=== PATIENT | female | born 1935 | race Caucasian/White ===

== ENCOUNTER 2016-09-27 10:27 | Day surgery (SDC) | payer OTHER ==
[~2016-09-27] VITALS: Ht 161.9 cm; Wt 83.5 kg
[~2016-09-27 10:27] MED LIST: COLACE1 EAC1 PO; COUMADIN,JANTOVE5 MG PO; DIGITEK250 MC2 PO; EFFEXOR XR37.5 MG PO; ENABLEX15 MG PO; ERGOCALCIF50000 UNIT PO; LANOXIN,DIGI0.125 MG PO; LASIX20 MG PO; METOPROLOL SUC100 MG PO; OMEGA-31000 M1 PO; OMEPRAZOLE20 MG PO; OXAYDO5 MG PO; SYNTHROID125 MCG PO; SYNTHROID175 MCG PO; URECHOLINE25 MG PO; VESICARE5 MG PO; WARFARIN SODIUM5 MG PO; ZOCOR10 M1 PO
[2016-09-27] MEDS ORDERED: DIGOX125 MCG PO (10:58)
== END 2016-09-27 15:51 | disposition home or self-care (01) ==
LOC: CATH 10:27
PROC: 02HV33Z Insertion of Infusion Device into Superior Vena Cava, Percutaneous Approach (ICD-10-PCS; principal; 2016-09-27)
DX: C56.9 Malignant neoplasm of unspecified ovary (principal); I10 Essential (primary) hypertension; M19.90 Unspecified osteoarthritis, unspecified site
CPT/HCPCS: C1752; C1769; C1894; J0360; J0690; J1644; J2250; J3010; S0020

== ENCOUNTER 2016-11-16 14:09 | Emergency (ER) | payer OTHER ==
[~2016-11-16] VITALS: Ht 160 cm; Wt 89.9 kg
[~2016-11-16 14:09] MED LIST changes: +DIGOX125 MCG PO
[2016-11-16 15:13] LABS: MEAN PLAT.VOLUME 10.1 uM^3 (9.5-12.4)
[2016-11-16 15:15] LABS: CHLORIDE 103 mEq/L (99-109); SODIUM 139 mEq/L (136-147)
[2016-11-16 15:17] LABS: GLUCOSE 97 mg/dL (70-99)
[2016-11-16 15:18] LABS: ANION GAP 7 MEQ/L (2-14)
[2016-11-16 15:21] LABS: GFR ESTIMATE (CALCULATED) 57 mL/min/
[2016-11-16 15:22] LABS: UREA NITROGEN (BUN) 15 mg/dL (9-23)
[2016-11-16 15:23] LABS: INTER. NORMALIZED RATIO 3.2; PTT 38.2 (25-32)
[2016-11-16 15:28] LABS: TROP-I INTERPRETATION NEGATIVE; TROPONIN-I 0.02 ng/mL (0.0-0.30)
[2016-11-16 15:31] LABS: PROTHROMBIN TIME 33.8 (9.2-11.2)
[2016-11-16 15:54] LABS: HEMATOCRIT 34.9 % (36.0-46.0); MCH 37.5 PG (29.0-34.0); MCV 113.7 FL (83-99); PLATELET COUNT 252 K/uL (156-360); RBC DIS.WIDTH-CV 16.3 % (11.8-14.6); RBC DIS.WIDTH-SD 68.1 % (39-53); RED BLOOD COUNT 3.07 M/uL (3.80-5.20); WHITE BLOOD COUNT 5.3 K/uL (4.1-10.2)
[2016-11-16 16:37] LABS: ADD MIUA? YES; BILIRUBIN NEGATIVE; BLOOD MODERATE; COLOR YELLOW ((YELLOW)); GLUCOSE (STRIP) NEGATIVE; KETONES NEGATIVE; LEUKOCYTES NEGATIVE; NITRITE NEGATIVE; PROTEIN (STRIP) 100; SPECIFIC GRAVITY 1.013 (1.000-1.030); UROBILINOGEN 0.2 MG/DL (0.2-1.0)
[2016-11-16 16:48] LABS: BACTERIA NONE SEEN /HPF; EPITHELIAL CELLS RARE /HPF; MUCUS NONE SEEN /LPF; RED BLOOD CELLS 20-30 /HPF (0-5); UCUL ADDED? NO; WHITE BLOOD CELLS 0-5 /HPF (0-5)
[2016-11-16 17:23] VITALS: BP 176/92
== END 2016-11-16 17:24 | disposition left against medical advice (07) ==
LOC: EME 14:09
PROVIDERS: Emergency Medicine
DX: G45.9 Transient cerebral ischemic attack, unspecified (principal); D64.9 Anemia, unspecified; R31.9 Hematuria, unspecified; R29.6 Repeated falls; Z79.01 Long term (current) use of anticoagulants; E78.5 Hyperlipidemia, unspecified; I10 Essential (primary) hypertension; E03.9 Hypothyroidism, unspecified; Z96.652 Presence of left artificial knee joint; Z96.651 Presence of right artificial knee joint; Z88.1 Allergy status to other antibiotic agents
CPT/HCPCS: 70450; 80048; 81003; 84484; 85027; 85610; 85730; 99281; 99285

== ENCOUNTER 2016-12-09 08:44 | Inpatient (IN) | payer OTHER ==
[~2016-12-09] VITALS: Ht 157.5 cm; Wt 85.0 kg
[2016-12-09 09:53] LABS: CHLORIDE 102 mEq/L (99-109); POTASSIUM 4.7 mEq/L (3.7-5.4); SODIUM 135 mEq/L (136-147)
[2016-12-09 09:55] LABS: GLUCOSE 95 mg/dL (70-99)
[2016-12-09 09:56] LABS: EOSINOPHIL (%) 1.2 % (0-5); EOSINOPHIL COUNT 0.1 K/uL (0-0.3); HEMATOCRIT 34.7 % (36.0-46.0); IMMATURE GRANULOCYTE (%) 0.5 % (0.0-0.7); INSTRUMENT ABS NEUTROPHIL CT 2.7 K/uL; LYMPHOCYTE COUNT 1.1 K/uL (1.0-2.8); MCH 36.1 PG (29.0-34.0); MCHC 33.4 G/DL (30.0-36.0); MONOCYTE COUNT 0.3 K/uL (0-0.8); NEUTROPHIL (%) 64.3 % (45-76); NEUTROPHIL COUNT 2.7 K/uL (1.8-6.4); RBC DIS.WIDTH-CV 13.7 % (11.8-14.6); RBC DIS.WIDTH-SD 55.4 % (39-53); RED BLOOD COUNT 3.21 M/uL (3.80-5.20); WHITE BLOOD COUNT 4.1 K/uL (4.1-10.2)
[2016-12-09 09:57] LABS: ANION GAP 11 MEQ/L (2-14)
[2016-12-09 09:58] LABS: MEAN PLAT.VOLUME 10.6 uM^3 (9.5-12.4); PLATELET COUNT 167 K/uL (156-360)
[2016-12-09 09:59] LABS: GFR ESTIMATE (CALCULATED) 33 mL/min/
[2016-12-09 10:00] LABS: MCV 108.1 FL (83-99); UREA NITROGEN (BUN) 36 mg/dL (9-23)
[2016-12-09 10:21] LABS: INTER. NORMALIZED RATIO 2.4; PROTHROMBIN TIME 24.8 (9.2-11.2)
[2016-12-09 10:24] LABS: TROP-I INTERPRETATION NEGATIVE; TROPONIN-I 0.02 ng/mL (0.0-0.30)
[2016-12-09 10:42] LABS: ADD MIUA? YES; BILIRUBIN NEGATIVE; BLOOD MODERATE; COLOR YELLOW ((YELLOW)); GLUCOSE (STRIP) NEGATIVE; KETONES NEGATIVE; LEUKOCYTES NEGATIVE; NITRITE NEGATIVE; PROTEIN (STRIP) 100; SPECIFIC GRAVITY 1.012 (1.000-1.030); UROBILINOGEN 0.2 MG/DL (0.2-1.0)
[2016-12-09 10:56] LABS: ABS NEUTROPHIL COUNT 3.1; ANISOCYTOSIS 1+; EOSINOPHIL ABS CT 0; EOSINOPHILS 0.9 % (0-5.0); LYMPHOCYTES 21.9 % (15.0-45.0); MACROCYTES 1+; PLAT.SUFFICIENCY ADEQUATE; SEG.NEUTROPHILS 74.6 % (46.0-76.0)
[2016-12-09 11:14] LABS: BACTERIA NONE SEEN /HPF; EPITHELIAL CELLS RARE /HPF; MUCUS NONE SEEN /LPF; RED BLOOD CELLS 15-20 /HPF (0-5); UCUL ADDED? NO; WHITE BLOOD CELLS 0-5 /HPF (0-5)
[2016-12-09] MEDS ORDERED: VITAMIN D5000 UNI1 PO (16:12)
[2016-12-09] MEDS ORDERED: OMEGA-3 FISH1200 MG PO (16:14)
[2016-12-09] MEDS ORDERED: LOPRESSOR100 M1 PO (16:14)
[2016-12-09] MEDS ORDERED: OXAYDO5 MG PO (16:15)
[2016-12-09] MEDS ORDERED: EFFEXOR37.5 MG PO (16:16)
[2016-12-09] MEDS ORDERED: CALCIUM 500 +1 EAC2 PO (16:17)
[2016-12-09] MEDS ORDERED: CRANBERRY500 M3 PO (16:17)
[2016-12-09] MEDS ORDERED: LORAZEPAM0.5 MG PO (16:18)
[2016-12-09] MEDS ORDERED: BACTRIM,SEPT1 TABLET PO (16:18)
[2016-12-09] MEDS ORDERED: KLOR-CON 1010 ME1 PO (16:25)
[2016-12-09] MEDS ORDERED: CITRACAL W/V1 TABLE1 PO (16:42)
[2016-12-09 17:23] LABS: DIGOXIN < 0.3 ng/mL (0.8-2.0)
[2016-12-09 17:45] LABS: HDL CHOLESTEROL 52 MG/DL (Desirable>=50); LDL CHOLESTEROL 91 mg/dL (Desirable<100); NON-HDL CHOLESTEROL 111 mg/dL (Desirable<160); TOTAL CHOLESTEROL 163 mg/dL (Desirable<200); TRIGLYCERIDES 100 MG/DL (Normal: <150)
[2016-12-09 17:51] LABS: Estimated Average Glucose 91 mg/dL (70-123); HEMOGLOBIN A1c (GLYCOHEMOGLOB) 4.8 % HGB (Below 5.7)
[2016-12-09 18:24] VITALS: BP 175/91
[2016-12-09 20:19] VITALS: BP 114/79
[2016-12-09 23:58] VITALS: BP 139/95
[2016-12-10 04:00] VITALS: BP 132/76
[2016-12-10 07:35] LABS: HEMATOCRIT 30.5 % (36.0-46.0); MCHC 33.4 G/DL (30.0-36.0); MCV 107.8 FL (83-99); PLATELET COUNT 142 K/uL (156-360); RBC DIS.WIDTH-CV 13.8 % (11.8-14.6); RBC DIS.WIDTH-SD 55.3 % (39-53); RED BLOOD COUNT 2.83 M/uL (3.80-5.20); WHITE BLOOD COUNT 3.5 K/uL (4.1-10.2)
[2016-12-10 07:49] LABS: INTER. NORMALIZED RATIO 1.7; PROTHROMBIN TIME 17.7 (9.2-11.2)
[2016-12-10 07:58] LABS: ANION GAP 9 MEQ/L (2-14); CHLORIDE 102 MEQ/L (99-109); GFR ESTIMATE (CALCULATED) 46 mL/min/; GLUCOSE 89 mg/dL (70-99); POTASSIUM 4.6 MEQ/L (3.7-5.4); SAMPLE HEMOLYSIS CHECK 0; SAMPLE ICTERIC CHECK 0; SAMPLE LIPEMIA CHECK 0; SODIUM 136 MEQ/L (136-147); UREA NITROGEN (BUN) 36 mg/dL (9-23)
[2016-12-10 08:30] VITALS: BP 163/94
[2016-12-10 12:11] VITALS: BP 143/91
[2016-12-10 20:00] VITALS: BP 122/64
[2016-12-10 23:57] VITALS: BP 134/56
[2016-12-11 04:30] VITALS: BP 115/83
[2016-12-11 07:53] LABS: INTER. NORMALIZED RATIO 1.6
[2016-12-11 08:09] VITALS: BP 164/89
[2016-12-11 09:24] LABS: ANION GAP 8 MEQ/L (2-14); CHLORIDE 101 MEQ/L (99-109); GFR ESTIMATE (CALCULATED) 42 mL/min/; GLUCOSE 96 mg/dL (70-99); POTASSIUM 5.1 MEQ/L (3.7-5.4); SAMPLE HEMOLYSIS CHECK 0; SAMPLE ICTERIC CHECK 0; SAMPLE LIPEMIA CHECK 0; SODIUM 134 MEQ/L (136-147); UREA NITROGEN (BUN) 39 mg/dL (9-23)
[2016-12-11 11:48] VITALS: BP 161/85
[2016-12-11 16:09] VITALS: BP 138/67
[2016-12-11 20:00] VITALS: BP 154/79
[2016-12-11 23:59] VITALS: BP 156/85
[2016-12-12 04:22] VITALS: BP 139/99
[2016-12-12 07:08] LABS: EOSINOPHIL (%) 5.4 % (0-5); EOSINOPHIL COUNT 0.2 K/uL (0-0.3); INSTRUMENT ABS NEUTROPHIL CT 1.3 K/uL; LYMPHOCYTE COUNT 1.5 K/uL (1.0-2.8); MCHC 33.5 G/DL (30.0-36.0); MCV 107.3 FL (83-99); MEAN PLAT.VOLUME 10.5 uM^3 (9.5-12.4); MONOCYTE (%) 4.4 % (3-12); MONOCYTE COUNT 0.1 K/uL (0-0.8); NEUTROPHIL (%) 42.3 % (45-76); NEUTROPHIL COUNT 1.3 K/uL (1.8-6.4); PLATELET COUNT 136 K/uL (156-360); RBC DIS.WIDTH-CV 13.2 % (11.8-14.6); RBC DIS.WIDTH-SD 52.9 % (39-53); RED BLOOD COUNT 2.89 M/uL (3.80-5.20); WHITE BLOOD COUNT 3.2 K/uL (4.1-10.2)
[2016-12-12 07:28] LABS: INTER. NORMALIZED RATIO 1.6; PROTHROMBIN TIME 16.3 (9.2-11.2)
[2016-12-12 07:31] LABS: ANION GAP 7 MEQ/L (2-14); CHLORIDE 103 MEQ/L (99-109); GFR ESTIMATE (CALCULATED) 42 mL/min/; GLUCOSE 89 mg/dL (70-99); POTASSIUM 5.2 MEQ/L (3.7-5.4); SAMPLE HEMOLYSIS CHECK 0; SAMPLE ICTERIC CHECK 0; SAMPLE LIPEMIA CHECK 0; SODIUM 134 MEQ/L (136-147); UREA NITROGEN (BUN) 45 mg/dL (9-23)
[2016-12-12 08:41] VITALS: BP 139/82
[2016-12-12 12:30] VITALS: BP 132/82
[2016-12-12 12:32] LABS: DIGOXIN 0.4 ng/mL (0.8-2.0)
[2016-12-12 15:49] VITALS: BP 134/81
[2016-12-12 20:11] VITALS: BP 153/63
[2016-12-13] VITALS (7 sets, daily range): BP systolic 111–157; BP diastolic 61–99
[2016-12-13 07:21] LABS: EOSINOPHIL (%) 3.6 % (0-5); EOSINOPHIL COUNT 0.1 K/uL (0-0.3); HEMATOCRIT 30.9 % (36.0-46.0); INSTRUMENT ABS NEUTROPHIL CT 1.1 K/uL; LYMPHOCYTE COUNT 1.7 K/uL (1.0-2.8); MCH 35.8 PG (29.0-34.0); MCV 108.4 FL (83-99); MEAN PLAT.VOLUME 10.4 uM^3 (9.5-12.4); MONOCYTE (%) 3.9 % (3-12); MONOCYTE COUNT 0.1 K/uL (0-0.8); NEUTROPHIL (%) 36.7 % (45-76); NEUTROPHIL COUNT 1.1 K/uL (1.8-6.4); PLATELET COUNT 127 K/uL (156-360); RBC DIS.WIDTH-CV 13.2 % (11.8-14.6); RBC DIS.WIDTH-SD 52.7 % (39-53); RED BLOOD COUNT 2.85 M/uL (3.80-5.20); WHITE BLOOD COUNT 3.1 K/uL (4.1-10.2)
[2016-12-13 07:42] LABS: ANION GAP 6 MEQ/L (2-14); CHLORIDE 105 MEQ/L (99-109); GFR ESTIMATE (CALCULATED) 42 mL/min/; GLUCOSE 86 mg/dL (70-99); INTER. NORMALIZED RATIO 1.8; POTASSIUM 5.1 MEQ/L (3.7-5.4); PROTHROMBIN TIME 18.3 (9.2-11.2); SAMPLE HEMOLYSIS CHECK 0; SAMPLE ICTERIC CHECK 0; SAMPLE LIPEMIA CHECK 0; SODIUM 138 MEQ/L (136-147); UREA NITROGEN (BUN) 43 mg/dL (9-23)
[2016-12-14 03:30] VITALS: BP 128/71
[2016-12-14 07:27] LABS: INTER. NORMALIZED RATIO 1.7; PROTHROMBIN TIME 17.2 (9.2-11.2)
[2016-12-14 07:55] VITALS: BP 137/85
[2016-12-14 12:00] VITALS: BP 118/66
[2016-12-14 16:01] VITALS: BP 134/70
[2016-12-14 20:00] VITALS: BP 143/83
[2016-12-15 00:50] VITALS: BP 170/89
[2016-12-15 03:35] VITALS: BP 155/82
[2016-12-15 06:56] LABS: HEMATOCRIT 33.1 % (36.0-46.0); MCH 35.6 PG (29.0-34.0); MCHC 32.9 G/DL (30.0-36.0); MCV 108.2 FL (83-99); MEAN PLAT.VOLUME 10.4 uM^3 (9.5-12.4); PLATELET COUNT 116 K/uL (156-360); RBC DIS.WIDTH-CV 12.8 % (11.8-14.6); RBC DIS.WIDTH-SD 51.6 % (39-53); RED BLOOD COUNT 3.06 M/uL (3.80-5.20); WHITE BLOOD COUNT 2.6 K/uL (4.1-10.2)
[2016-12-15 07:02] LABS: INTER. NORMALIZED RATIO 1.5; PROTHROMBIN TIME 15.6 (9.2-11.2)
[2016-12-15 07:15] LABS: ANION GAP 7 MEQ/L (2-14); CHLORIDE 103 MEQ/L (99-109); GFR ESTIMATE (CALCULATED) 51 mL/min/; GLUCOSE 90 mg/dL (70-99); POTASSIUM 4.8 MEQ/L (3.7-5.4); SAMPLE HEMOLYSIS CHECK 0; SAMPLE ICTERIC CHECK 0; SAMPLE LIPEMIA CHECK 0; SODIUM 136 MEQ/L (136-147); UREA NITROGEN (BUN) 44 mg/dL (9-23)
[2016-12-15 07:51] LABS: EOSINOPHIL (%) 5.3 % (0-5); EOSINOPHIL COUNT 0.1 K/uL (0-0.3); IMMATURE GRANULOCYTE (%) 0.4 % (0.0-0.7); INSTRUMENT ABS NEUTROPHIL CT 0.2 K/uL; LYMPHOCYTE COUNT 2.2 K/uL (1.0-2.8); MONOCYTE (%) 3.4 % (3-12); MONOCYTE COUNT 0.1 K/uL (0-0.8); NEUTROPHIL (%) 7.7 % (45-76); NEUTROPHIL COUNT 0.2 K/uL (1.8-6.4)
[2016-12-15 08:03] VITALS: BP 141/63
[2016-12-15 11:54] VITALS: BP 108/75
[2016-12-15] MEDS ORDERED: CEFTIN250 MG PO (11:54)
[2016-12-15] MEDS ORDERED: DITROPAN5 MG PO (11:54)
[2016-12-15] MEDS ORDERED: LORAZEPAM0.5 MG PO (11:54)
[2016-12-15] MEDS ORDERED: PRAVASTATIN SOD40 MG PO (11:54)
[2016-12-15] MEDS ORDERED: ASPIR-LOW81 MG PO (11:54)
[2016-12-15] MEDS ORDERED: OXAYDO5 MG PO (12:39)
== END 2016-12-15 13:22 | DRG 683 ==
LOC: EME 08:44 → EDOF 16:00 → 5SOUTH 16:00
PROVIDERS: Emergency Medicine; Internal Medicine
DX: N17.9 Acute kidney failure, unspecified (principal); N39.0 Urinary tract infection, site not specified; G45.9 Transient cerebral ischemic attack, unspecified; C56.9 Malignant neoplasm of unspecified ovary; F05 Delirium due to known physiological condition; C78.5 Secondary malignant neoplasm of large intestine and rectum; C79.89 Secondary malignant neoplasm of other specified sites; K76.6 Portal hypertension; R47.01 Aphasia; B96.20 Unspecified Escherichia coli [E. coli] as the cause of diseases classified elsewhere; I48.2 Chronic atrial fibrillation; E03.9 Hypothyroidism, unspecified; R26.81 Unsteadiness on feet; I27.2 Other secondary pulmonary hypertension; M85.80 Other specified disorders of bone density and structure, unspecified site; K21.9 Gastro-esophageal reflux disease without esophagitis; I51.7 Cardiomegaly; E86.0 Dehydration; E55.9 Vitamin D deficiency, unspecified; M19.90 Unspecified osteoarthritis, unspecified site; F41.9 Anxiety disorder, unspecified; R13.10 Dysphagia, unspecified; I10 Essential (primary) hypertension; Z96.653 Presence of artificial knee joint, bilateral; K44.9 Diaphragmatic hernia without obstruction or gangrene; R31.1 Benign essential microscopic hematuria; Z79.01 Long term (current) use of anticoagulants; Z91.81 History of falling; Z90.710 Acquired absence of both cervix and uterus; Z90.49 Acquired absence of other specified parts of digestive tract
CPT/HCPCS: 36415; 70450; 70551; 71010; 72170; 76770; 80048; 80061; 80162; 81003; 82607; 82746; 83036; 84439; 84443; 84484; 85025; 85025 91; 85027; 85610; 85730; 87040; 92610 GN; 93005; 93306; 93880; 96413; 97530 GP; 99281; 99285; G0378; G8978 GP CJ; G8979 GP CI; G8987 GO CJ; G8988 CI; J2060; J7030; J7040; J7050; J9351; Q0164